=== PATIENT | male | born 1945 | race Caucasian/White ===

== ENCOUNTER 2020-09-08 09:52 | Outpatient (REF) | payer MEDICARE, SELFPAY ==
[2020-09-08 10:12] LABS: MANUAL DIFF FLAG NO
[2020-09-08 10:19] LABS: Basophils Percent Auto 0.7 % (0-2); Eosinophils Absolute Auto 0.2 X10*3/uL (0.0-0.4); Eosinophils Percent Auto 3.9 % (0-4); Hematocrit 37.4 % (42-52); Hemoglobin 12.4 g/dl (14.0-18.0); Imm Gran Abs Auto 0.02 X10*3/uL (0.00-0.03); Imm Gran Pct Auto 0.4 % (0.0-0.4); Lymphocytes Absolute Auto 1.3 X10*3/uL (1.2-4.9); Lymphocytes Percent Auto 23.9 % (20-40); Mean Corpuscular HGB Conc 33.2 g/dl (31.0-36.0); Mean Corpuscular Hemoglobin 30.1 pg (27.0-33.0); Mean Corpuscular Volume 90.8 fL (80-98); Mean Platelet Volume 9.3 fL (9.4-12.4); Monocytes Absolute Auto 0.7 X10*3/uL (0.1-1.2); Monocytes Percent Auto 13.5 % (2-11); Neutrophils Absolute Auto 3.1 X10*3/uL (2.0-8.3); Neutrophils Percent Auto 57.6 % (45-73); Platelet Count 281 X10*3/uL (160-400); Red Blood Count 4.12 X10*6/uL (4.60-5.80); Red Cell Distribution Width 12.8 % (11.0-16.0); White Blood Count 5.4 X10*3/uL (4.8-10.8)
[2020-09-08 10:48] LABS: Alanine Aminotransferase 33 U/L (0-40); Albumin Level 4.3 g/dL (3.5-5.0); Alkaline Phosphatase 76 U/L (39-117); Anion Gap 13 (12-20); Aspartate Amino Transferase 31 U/L (5-37); Bilirubin Total 0.4 mg/dL (0.0-1.0); Blood Urea Nitrogen 19 mg/dL (9-16); Calcium 9.2 mg/dL (8.4-10.2); Carbon Dioxide 27 mmol/L (22-29); Chloride 105 mmol/L (96-108); Cholesterol 112 mg/dL; Estimated Glomerular Filt Rate > 60; Glucose Fasting 115 mg/dL (60-99); HDL Cholesterol 45 mg/dL; LDL Cholesterol Calculated 29 mg/dl; Potassium 4.5 mmol/l (3.3-5.1); Sodium 140 mmol/L (135-145); Total Protein 6.6 g/dL (6.5-8.0); Triglycerides 194 mg/dL
== END 2020-09-08 09:53 | disposition home or self-care (01) ==
LOC: HO.LAB 09:52
PROVIDERS: PCP Internal Medicine; Visit Provider Internal Medicine
DX: Z00.00 Encounter for general adult medical examination without abnormal findings (principal); E11.9 Type 2 diabetes mellitus without complications
CPT/HCPCS: 36415; 80053; 80061; 85025

== ENCOUNTER 2022-02-27 08:43 | Outpatient (REF) | payer MEDICARE, SELFPAY ==
[2022-02-27 09:32] LABS: MANUAL DIFF FLAG NO
[2022-02-27 10:07] LABS: Basophils Percent Auto 0.5 % (0-2); Eosinophils Absolute Auto 0.2 X10*3/uL (0.0-0.4); Eosinophils Percent Auto 2.2 % (0-4); Hematocrit 39.8 % (42.0-52.0); Hemoglobin 13.2 g/dl (14.0-18.0); Imm Gran Abs Auto 0.05 X10*3/uL (0.00-0.03); Imm Gran Pct Auto 0.6 % (0.0-0.4); Lymphocytes Absolute Auto 1.5 X10*3/uL (1.2-4.9); Lymphocytes Percent Auto 19.5 % (20-40); Mean Corpuscular HGB Conc 33.2 g/dl (31.0-36.0); Mean Corpuscular Hemoglobin 29.5 pg (27.0-33.0); Mean Corpuscular Volume 88.8 fL (80.0-98.0); Mean Platelet Volume 9.4 fL (9.4-12.4); Monocytes Absolute Auto 0.9 X10*3/uL (0.1-1.2); Monocytes Percent Auto 12.1 % (2-11); Neutrophils Percent Auto 65.1 % (45-73); Platelet Count 307 X10*3/uL (160-400); Red Blood Count 4.48 X10*6/uL (4.60-5.80); Red Cell Distribution Width 13.3 % (11.0-16.0); White Blood Count 7.7 X10*3/uL (4.8-10.8)
[2022-02-27 10:38] LABS: Alanine Aminotransferase 31 U/L (0-40); Albumin Level 4.4 g/dL (3.5-5.0); Alkaline Phosphatase 93 U/L (39-117); Anion Gap 15 (12-20); Aspartate Amino Transferase 27 U/L (5-37); Bilirubin Total 0.8 mg/dL (0.0-1.0); Blood Urea Nitrogen 19 mg/dL (9-16); Calcium 9.9 mg/dL (8.4-10.2); Carbon Dioxide 25 mmol/L (22-29); Chloride 104 mmol/L (96-108); Cholesterol 125 mg/dL; Estimated Glomerular Filt Rate > 60; Glucose Fasting 127 mg/dL (60-99); HDL Cholesterol 47 mg/dL; LDL Cholesterol Calculated 46 mg/dl; Potassium 4.8 mmol/L (3.3-5.1); Sodium 139 mmol/L (135-145); Total Protein 7.1 g/dL (6.5-8.0); Triglycerides 163 mg/dL
[2022-02-27 10:51] LABS: Thyroid Stimulating Hormone 1.16 uIU/mL (0.32-4.0)
== END 2022-02-27 08:44 | disposition home or self-care (01) ==
LOC: HO.LAB 08:43
PROVIDERS: PCP Internal Medicine; Visit Provider Internal Medicine
DX: Z00.00 Encounter for general adult medical examination without abnormal findings (principal)
CPT/HCPCS: 36415; 80053; 80061; 84443; 85025

== ENCOUNTER 2023-08-12 13:16 | Outpatient (AMB) | payer MEDICARE, SELFPAY ==
--- NOTE | 2023-08-12 13:22 | MHC.PC.OV ---
Vital Signs 08/12/23 13:23 Height 5 ft 8 in Weight 203 lb BMI 30.9 BP 144/66 H Blood Pressure Location Lt brachial Position Sitting Pulse 53 Pulse Source Pulse Oximeter Pulse Oximetry (%) 98 Oxygen Delivery Method Room Air Intake Visit Reasons: follow [facility] 08/04/23 Weather Anchor Required: No Zipper Slide Attacher: Present Accompanied by: Spouse Allergies No Known Allergies Allergy (Verified 08/12/23 13:23) Medication List - Last Reconciled 08/13/23 by Broderick Beckford MD atorvastatin 40 mg PO DAILY cyclosporine 0.05% (Restasis) 1 drp ophthalmic (eye) Q12H evolocumab mg subcut Q2W isosorbide mononitrate ER 30 mg PO QAM loperamide (Imodium A-D) 2 mg PO DAILY PRN lorazepam 1 mg PO DAILY PRN meclizine mg PO mesalamine 1,000 mg [place] BEDTIME PRN metoprolol succinate ER 25 mg PO DAILY oxycodone 5 mg PO Q6H PRN zolpidem 10 mg PO BEDTIME PRN Tobacco use date assessed: 03/26/23 Fall risk assessment: No Falls in past year Last assessed Fall Risk: 08/12/23 Dental Screening Dental Screen Date: 08/12/23 Did you have a dental visit in the last 12 months?: Yes Did you have a dental problem in the last 6 months where you did not have access to dental care?: No Was dental information given to patient?: Patient has dentist HPI [facility] 08/04/23 HPI Details shingle on right side of chest; already seen and rx'd; improving PFSH Medical History Coronary artery disease Back pain Surgical History History of open heart surgery History of vasectomy Hx of angioplasty History of inguinal hernia repair History of appendectomy Family History Father Skin cancer Heart disease Mother No problems noted. Sister Breast cancer Skin cancer Social History Housing: House Alcohol intake: never Patient Tobacco Use Status: Former Tobacco user Tobacco use type: Cigarette e-Cigarette/Vaping Use: Never Used Second Hand Smoke Exposure: No service: No Current occupational status: retired Cognitive needs: No Hearing needs: No Vision needs: No Questionnaire PHQ-9 Over the last 2 weeks, how often have you been bothered by any of the following problems? 1. Little interest or pleasure in doing things: not at all 2. Feeling down, depressed, or hopeless: not at all 3. Trouble falling or staying asleep, or sleeping too much: not at all 4. Feeling tired or having little energy: not at all 5. Poor appetite or overeating: not at all 6. Feeling bad about yourself - or that you are a failure or have let yourself or your family down: not at all 7. Trouble concentrating on things, such as reading the newspaper or watching television: not at all 8. Moving or speaking so slowly that other people could have noticed. Or the opposite - being so fidgety or restless that you have been moving around a lot more than usual: not at all 9. Thoughts that you would be better off or of hurting yourself in some way: not at all Total score: 0 Depression Screening Interpretation: Negative Depression Screening Done: Yes 23278 - PHQ-9 Billing: Yes Source: Developed by Drs. James Restrepo, Kevin Novoa and colleagues, with an educational jessica from [employer]. Thrive Questionnaire Date Thrive assessed: 03/26/23 AUDIT C Alcohol Use Questionnaire (AUDIT-C) 1. How often do you have a drink containing alcohol?: Never Total Score: 0 ANTWON-7 AMB Questionnaire ANTWON-7 Date ANTWON - 7 assessed: 03/26/23 Source: Developed by Drs. James Restrepo, Kevin Novoa and colleagues, with an educational jessica from [employer]. Review of Systems Const Denies chills, Denies headache(s) and Denies weight loss ENT Denies headache(s) Card Denies syncope, Denies irregular heart rhythm and Denies dyspnea Resp Denies chest congestion, Denies cough and Denies dyspnea GI Denies abdominal pain, Denies change in stool character, Denies nausea and Denies vomiting Musc Denies deformity and Denies joint swelling Neuro Denies syncope and Denies headache(s) Physical exam (Primary Care) Vital Signs: Last Vital Signs Pulse 53 08/12/23 13:23 BP 144/66 H 08/12/23 13:23 Pulse Ox 98 08/12/23 13:23 Oxygen Delivery Method Room Air 08/12/23 13:23 BMI result Body Mass Index 30.9 Tobacco/Smoking Status: Tobacco use Status Tobacco use date assessed 03/26/23 08/12/23 13:24 Patient Tobacco Use Status Former Tobacco user 08/12/23 13:24 Tobacco use type Cigarette 08/12/23 13:24 e-Cigarette/Vaping Use Never Used 08/12/23 13:24 PHQ-9: PHQ-9 Score PHQ-9: Total score 0 08/12/23 13:24 Depression Screening Interpretation: Negative Thrive Assessment: Date of Thrive Assessment Date Thrive assessed 03/26/23 08/12/23 13:24 Const General: cooperative, comfortable, no acute distress and alert Neck Neck: Yes no lymphadenopathy Thyroid: Thyroid normal Resp Effort & Inspection: normal respiratory effort Auscultation: clear to auscultation bilaterally Percussion: percussion normal Cardio Jugular venous distension: no JVD Palpation: normal PMI Rate: regular rate Rhythm: regular rhythm Heart sounds: S1 normal heart sound present and S2 normal heart sound present GI Inspection: Yes normal to inspection Palpation (GI): No hepatosplenomegaly present Skin Other: Zoster on right trunk; no secondary infection Extrem General: Yes no clubbing, cyanosis or edema Assessment and Plan Assessment & Plan (1) Herpes zoster: Code(s): B02.9 - Zoster without complications Plan: add pain meds Medications: New oxycodone Partial Fill upon patient request. 5 mg PO Q6H PRN 20 tabs 0RF pain Coding Level of Care Code Est Pt Level 3 (46124) Diagnoses Herpes zoster B02.9
[2023-08-12 13:23] VITALS: BP 144/66; PULSE 53; O2SAT 98; BMI 30.9
== END 2023-08-12 14:19 | disposition home or self-care (01) ==
PROVIDERS: PCP Internal Medicine; Visit Provider Internal Medicine
DX: B02.9 Zoster without complications (principal)
CPT/HCPCS: 99213

== ENCOUNTER 2023-10-02 13:45 | Outpatient (AMB) | payer MEDICARE, SELFPAY ==
[2023-10-02 13:49] VITALS: BP 138/72; PULSE 26; O2SAT 98; BMI 32.1
--- NOTE | 2023-10-02 13:49 | MHC.PC.OV ---
Vital Signs 10/02/23 13:49 Height 5 ft 8 in Weight 211 lb BMI 32.1 BP 138/72 Blood Pressure Location Lt brachial Position Sitting Pulse 26 L Pulse Source Pulse Oximeter Pulse Oximetry (%) 98 Oxygen Delivery Method Room Air Intake Visit Reasons: 6mth f/u Chemical Supervisor Required: No Cascade Operator: Not Required per policy Accompanied by: Self / Same As Patient Allergies No Known Allergies Allergy (Verified 10/02/23 13:50) Medication List - Last Reconciled 10/03/23 by Broderick Beckford MD atorvastatin 40 mg PO DAILY cyclosporine 0.05% (Restasis) 1 drp ophthalmic (eye) Q12H evolocumab mg subcut Q2W gabapentin 300 mg PO TID gabapentin 100 mg PO TID hydroxyzine pamoate 25 mg PO QID PRN isosorbide mononitrate ER 30 mg PO QAM loperamide (Imodium A-D) 2 mg PO DAILY PRN lorazepam 1 mg PO DAILY PRN meclizine mg PO mesalamine 1,000 mg [place] BEDTIME PRN metoprolol succinate ER 25 mg PO DAILY zolpidem 10 mg PO BEDTIME PRN Tobacco use date assessed: 03/26/23 Fall risk assessment: No Falls in past year Last assessed Fall Risk: 10/02/23 Dental Screening Dental Screen Date: 10/02/23 Did you have a dental visit in the last 12 months?: Yes Did you have a dental problem in the last 6 months where you did not have access to dental care?: No Was dental information given to patient?: Patient has dentist HPI 6mth f/u HPI Details continues with shingles discomfort; pain improving and pruritis PFSH Medical History Coronary artery disease Back pain Surgical History History of open heart surgery History of vasectomy Hx of angioplasty History of inguinal hernia repair History of appendectomy Family History Father Skin cancer Heart disease Mother No problems noted. Sister Breast cancer Skin cancer Social History Housing: House Alcohol intake: never Patient Tobacco Use Status: Former Tobacco user Tobacco use type: Cigarette e-Cigarette/Vaping Use: Never Used Second Hand Smoke Exposure: No service: No Current occupational status: retired Cognitive needs: No Hearing needs: No Vision needs: Yes Questionnaire Thrive Questionnaire Date Thrive assessed: 03/26/23 ANTWON-7 AMB Questionnaire ANTWON-7 Date ANTWON - 7 assessed: 03/26/23 Source: Developed by Drs. James Restrepo, Dahiana Lynn, Kevin Baum and colleagues, with an educational jessica from [employer]. Review of Systems Const Denies chills, Denies headache(s) and Denies weight loss ENT Denies headache(s) Card Denies chest pain, Denies syncope, Denies irregular heart rhythm and Denies dyspnea Resp Denies chest congestion, Denies cough and Denies dyspnea GI Denies abdominal pain, Denies change in stool character, Denies nausea and Denies vomiting Musc Denies deformity and Denies joint swelling Neuro Denies syncope and Denies headache(s) Physical exam (Primary Care) Vital Signs: Last Vital Signs Pulse 26 L 10/02/23 13:49 BP 138/72 10/02/23 13:49 Pulse Ox 98 10/02/23 13:49 Oxygen Delivery Method Room Air 10/02/23 13:49 BMI result Body Mass Index 32.1 Tobacco/Smoking Status: Tobacco use Status Tobacco use date assessed 03/26/23 10/02/23 13:50 Patient Tobacco Use Status Former Tobacco user 10/02/23 13:50 Tobacco use type Cigarette 10/02/23 13:50 e-Cigarette/Vaping Use Never Used 10/02/23 13:50 Thrive Assessment: Date of Thrive Assessment Date Thrive assessed 03/26/23 10/02/23 13:50 Const General: cooperative, comfortable, no acute distress and alert Neck Neck: Yes no lymphadenopathy Thyroid: Thyroid normal Resp Effort & Inspection: normal respiratory effort Auscultation: clear to auscultation bilaterally Percussion: percussion normal Cardio Jugular venous distension: no JVD Palpation: normal PMI Rate: regular rate Rhythm: regular rhythm Heart sounds: S1 normal heart sound present and S2 normal heart sound present GI Inspection: Yes normal to inspection Palpation (GI): No hepatosplenomegaly present Skin General skin exam: no rashes or lesions noted Extrem General: Yes no clubbing, cyanosis or edema Assessment and Plan Assessment & Plan (1) Herpes zoster: Code(s): B02.9 - Zoster without complications Plan: increase gabapentin Medications: New gabapentin 300 mg PO TID 90 caps 0RF hydroxyzine pamoate 25 mg PO QID PRN 90 caps 5RF itching Coding Level of Care Code Est Pt Level 3 (38661) Diagnoses Herpes zoster B02.9
== END 2023-10-02 14:19 | disposition home or self-care (01) ==
PROVIDERS: PCP Internal Medicine; Visit Provider Internal Medicine
DX: B02.9 Zoster without complications (principal)
CPT/HCPCS: 99213

== ENCOUNTER 2024-03-27 13:26 | Outpatient (AMB) | payer MEDICARE, SELFPAY ==
[2024-03-27 13:42] VITALS: BP 134/70; PULSE 36; O2SAT 98; BMI 32.4
--- NOTE | 2024-03-27 13:42 | A.OFFPC_ITS ---
Vital Signs 03/27/24 13:42 Height 5 ft 8 in Weight 213 lb BMI 32.4 BP 134/70 Blood Pressure Location Lt brachial Position Sitting Pulse 36 L Pulse Source Pulse Oximeter Pulse Oximetry (%) 98 Oxygen Delivery Method Room Air Intake Visit Reasons: Annual Exam Spray Drier Operator Required: No Sample Prep Technician: Not Required per policy Accompanied by: Self / Same As Patient Allergies No Known Allergies Allergy (Verified 10/02/23 13:50) Medication List - Last Reconciled 03/30/24 by Broderick Beckford MD atorvastatin 40 mg PO DAILY cyclosporine 0.05% (Restasis) 1 drp ophthalmic (eye) Q12H evolocumab mg subcut Q2W furosemide (Lasix) 20 mg PO DAILY gabapentin 100 mg PO TID gabapentin 300 mg PO TID hydroxyzine pamoate 25 mg PO QID PRN isosorbide mononitrate ER 30 mg PO QAM loperamide (Imodium A-D) 2 mg PO DAILY PRN lorazepam 1 mg PO DAILY PRN meclizine mg PO mesalamine 1,000 mg [place] BEDTIME PRN metoprolol succinate ER 25 mg PO DAILY zolpidem 10 mg PO BEDTIME PRN Tobacco use date assessed: 03/27/24 Fall risk assessment: No Falls in past year Last assessed Fall Risk: 03/27/24 Dental Screening Dental Screen Date: 10/02/23 HPI Annual Exam HPI Details CAD hyperlipidemia on rx; sees cardioilogy and doing well [facility] Medical History Coronary artery disease Back pain Surgical History History of open heart surgery History of vasectomy Hx of angioplasty History of inguinal hernia repair History of appendectomy Family History Father Skin cancer Heart disease Mother No problems noted. Sister Breast cancer Skin cancer Social History Housing: House Alcohol intake: never Patient Tobacco Use Status: Former Tobacco user Tobacco use type: Cigarette e-Cigarette/Vaping Use: Never Used Second Hand Smoke Exposure: No service: No Current occupational status: retired Cognitive needs: No Hearing needs: No Vision needs: Yes Questionnaire PHQ-9 Over the last 2 weeks, how often have you been bothered by any of the following problems? 1. Little interest or pleasure in doing things: not at all 2. Feeling down, depressed, or hopeless: not at all 3. Trouble falling or staying asleep, or sleeping too much: not at all 4. Feeling tired or having little energy: not at all 5. Poor appetite or overeating: not at all 6. Feeling bad about yourself - or that you are a failure or have let yourself or your family down: not at all 7. Trouble concentrating on things, such as reading the newspaper or watching television: not at all 8. Moving or speaking so slowly that other people could have noticed. Or the opposite - being so fidgety or restless that you have been moving around a lot more than usual: not at all 9. Thoughts that you would be better off or of hurting yourself in some way: not at all Total score: 0 Depression Screening Interpretation: Negative Depression Screening Done: Yes 68692 - PHQ-9 Billing: Yes Source: Developed by Drs. James Restrepo, Dahiana Lynn, Kevin Baum and colleagues, with an educational jessica from [employer]. Thrive Questionnaire Date Thrive assessed: 03/27/24 I am a: Patient What is your living situation today?: I have a steady place to live Within the past 12 months, did the food you bought not last and you didn't have the money to get more?: Never true Within the past 12 months, did you worry whether your food would run out before you got money to buy more?: Never true Do you have trouble paying for medicines?: No Do you have trouble getting transportation to medical appointments?: No Do you have trouble paying your heating and electricity bill?: No Do you have trouble taking care of your child, family member or friend?: No Do you have trouble with day-to-day activities such as bathing, preparing meals, shopping, managing finances, etc.?: No Are you currently unemployed and looking for a job?: No Are you interested in more education?: No Please select the resources that you would like help with: None THRIVE Score: 0 AUDIT C Alcohol Use Questionnaire (AUDIT-C) 1. How often do you have a drink containing alcohol?: Never Total Score: 0 ANTWON-7 AMB Questionnaire ANTWON-7 Date ANTWON - 7 assessed: 03/27/24 Feeling nervous, anxious, or on edge: 0 = Not at all Not being able to stop or control worryin = Not at all Worrying too much about different things: 0 = Not at all Trouble relaxin = Not at all Being so restless that it is hard to sit still: 0 = Not at all Becoming easily annoyed or irritable: 0 = Not at all Feeling afraid as if something awful might happen: 0 = Not at all Total ANTWON-7 score (0-4 normal; 5-9 mild; 10-14 moderate; 15-21 severe): 0 Source: Developed by Drs. James Restrepo, Dahiana Lynn, Kevin Baum and colleagues, with an educational jessica from [employer]. ANTWON-7 Assessment Billing ANTWON-7 Assessment Tool: ANTWON-7 Assessment 68424 Physical exam (Primary Care) Vital Signs: Last Vital Signs Pulse 36 L 03/27/24 13:42 BP 134/70 03/27/24 13:42 Pulse Ox 98 03/27/24 13:42 Oxygen Delivery Method Room Air 03/27/24 13:42 BMI result Body Mass Index 32.4 Tobacco/Smoking Status: Tobacco use Status Tobacco use date assessed 03/27/24 03/27/24 13:49 Patient Tobacco Use Status Former Tobacco user 03/27/24 13:49 Tobacco use type Cigarette 03/27/24 13:49 e-Cigarette/Vaping Use Never Used 03/27/24 13:49 PHQ-9: PHQ-9 Score PHQ-9: Total score 0 03/30/24 10:12 Depression Screening Interpretation: Negative Thrive Assessment: Date of Thrive Assessment Date Thrive assessed 03/27/24 03/27/24 13:49 Assessment and Plan Assessment & Plan (1) Physical exam: Code(s): Z00.00 - Encounter for general adult medical examination without abnormal findings Plan: stable (2) Coronary artery disease: Code(s): I25.10 - Atherosclerotic heart disease of [place] coronary artery without angina pectoris Plan: per cardiology (3) Hyperlipidemia: Code(s): E78.5 - Hyperlipidemia, unspecified Plan: stable; do labs Orders: Orders Lipid Panel 03/27/24 Z13.220 - Encounter for screening for lipoid disorders Complete Blood Count Auto Diff 03/27/24 Z13.0 - Encounter for screening for diseases of the blood and blood-forming organs and certain disorders involving the immune mechanism Comprehensive [place]. Panel Fast 03/27/24 Z13.9 - Encounter for screening, unspecified Thyroid Stimulating Hormone 03/27/24 Z13.29 - Encounter for screening for other suspected endocrine disorder Medications: New furosemide (Lasix) 20 mg PO DAILY 30 tabs 3RF Refilled zolpidem 10 mg PO BEDTIME PRN 90 tabs 5RF insomnia hydroxyzine pamoate 25 mg PO QID PRN 90 caps 5RF itching Coding Level of Care Code Est Pt Prev Care >65y(52538) Diagnoses Physical exam Z00.00 Coronary artery disease I25.10 Hyperlipidemia E78.5 Additional Codes ANTWON-7 Assessment Billing - ANTWON-7 Assessment Tool: ANTWON-7 Assessment 99141 ([id number])
== END 2024-03-27 14:19 | disposition home or self-care (01) ==
PROVIDERS: PCP Internal Medicine; Visit Provider Internal Medicine
DX: Z00.00 Encounter for general adult medical examination without abnormal findings (principal); I25.10 Atherosclerotic heart disease of native coronary artery without angina pectoris; E78.5 Hyperlipidemia, unspecified
CPT/HCPCS: 99397

== ENCOUNTER 2024-05-13 10:05 | Outpatient (REF) | payer MEDICARE, SELFPAY ==
[2024-05-13 10:24] LABS: MANUAL DIFF FLAG NO
[2024-05-13 10:46] LABS: Basophils Absolute Auto 0.1 X10*3/uL (0.0-0.2); Basophils Percent Auto 1.1 % (0-2); Eosinophils Absolute Auto 0.2 X10*3/uL (0.0-0.4); Eosinophils Percent Auto 2.8 % (0-4); Hematocrit 37.4 % (42.0-52.0); Hemoglobin 12.7 g/dl (14.0-18.0); Imm Gran Abs Auto 0.03 X10*3/uL (0.00-0.03); Imm Gran Pct Auto 0.5 % (0.0-0.4); Lymphocytes Absolute Auto 1.4 X10*3/uL (1.2-4.9); Lymphocytes Percent Auto 23.9 % (20-40); Mean Corpuscular Hemoglobin 30.6 pg (27.0-33.0); Mean Corpuscular Volume 90.1 fL (80.0-98.0); Mean Platelet Volume 9.4 fL (9.4-12.4); Monocytes Absolute Auto 0.8 X10*3/uL (0.1-1.2); Monocytes Percent Auto 13.9 % (2-11); Neutrophils Absolute Auto 3.3 x10*3/uL (2.0-8.3); Neutrophils Percent Auto 57.8 % (45-73); Platelet Count 283 X10*3/uL (160-400); Red Blood Count 4.15 X10*6/uL (4.60-5.80); Red Cell Distribution Width 13.6 % (11.0-16.0); White Blood Count 5.7 X10*3/uL (4.8-10.8)
[2024-05-13 11:30] LABS: Alanine Aminotransferase 38 U/L (0-40); Albumin Level 4.2 g/dL (3.5-5.0); Alkaline Phosphatase 74 U/L (39-117); Anion Gap 11 (12-20); Aspartate Amino Transferase 30 U/L (5-37); Bilirubin Total 0.6 mg/dL (0.0-1.0); Blood Urea Nitrogen 25 mg/dL (9-16); Calcium 8.6 mg/dL (8.4-10.2); Carbon Dioxide 28 mmol/L (22-29); Chloride 104 mmol/L (96-108); Cholesterol 95 mg/dL (<200); Estimated Glomerular Filt Rate > 60; Glucose Fasting 134 mg/dL (60-99); HDL Cholesterol 43 mg/dL (>40); LDL Cholesterol Calculated 28 mg/dL (<100); Potassium 4.2 mmol/L (3.3-5.1); Sodium 139 mmol/L (135-145); Total Protein 6.8 g/dL (6.5-8.0); Triglycerides 122 mg/dL (<150)
[2024-05-13 11:47] LABS: Thyroid Stimulating Hormone 1.44 uIU/mL (0.32-4.0)
== END 2024-05-13 10:06 | disposition home or self-care (01) ==
LOC: HO.LAB 10:05
PROVIDERS: PCP Internal Medicine; Visit Provider Internal Medicine
DX: Z13.220 Encounter for screening for lipoid disorders (principal); Z13.29 Encounter for screening for other suspected endocrine disorder; Z13.0 Encounter for screening for diseases of the blood and blood-forming organs and certain disorders involving the immune mechanism; Z13.6 Encounter for screening for cardiovascular disorders
CPT/HCPCS: 36415; 80053; 80061; 84443; 85025

== ENCOUNTER 2024-09-28 13:36 | Outpatient (AMB) | payer MEDICARE, SELFPAY ==
--- NOTE | 2024-09-28 13:49 | A.OFFPC_ITS ---
Vital Signs 09/28/24 13:51 Height 5 ft 8 in Weight 220 lb BMI 33.4 BP 138/84 Blood Pressure Location Lt brachial Position Sitting Pulse 79 Pulse Source Pulse Oximeter Pulse Oximetry (%) 96 Oxygen Delivery Method Room Air Intake Visit Reasons: 6mth f/u Allergies No Known Allergies Allergy (Verified 09/28/24 13:57) Medication List - Last Reconciled 09/29/24 by Broderick Beckford MD alirocumab (Praluent Pen) mg subcut atorvastatin 40 mg PO DAILY cyclosporine 0.05% (Restasis) 1 drp ophthalmic (eye) Q12H evolocumab mg subcut Q2W gabapentin 300 mg PO TID loperamide (Imodium A-D) 2 mg PO DAILY PRN lorazepam 1 mg PO DAILY PRN meclizine mg PO mesalamine 1,000 mg [place] BEDTIME PRN metoprolol succinate ER 25 mg PO DAILY zolpidem 10 mg PO BEDTIME PRN Tobacco use date assessed: 09/28/24 Fall risk assessment: No Falls in past year Last assessed Fall Risk: 09/28/24 Dental Screening Dental Screen Date: 09/28/24 Did you have a dental visit in the last 12 months?: Yes Did you have a dental problem in the last 6 months where you did not have access to dental care?: No Was dental information given to patient?: Patient has dentist HPI 6mth f/u HPI Details hyperlipidemia on rx; doing well and compliant on regimen PFSH Medical History Coronary artery disease Back pain Surgical History History of open heart surgery History of vasectomy Hx of angioplasty History of inguinal hernia repair History of appendectomy Family History Father Skin cancer Heart disease Mother No problems noted. Sister Breast cancer Skin cancer Social History Housing: House Alcohol intake: never Patient Tobacco Use Status: Former Tobacco user Tobacco use type: Cigarette e-Cigarette/Vaping Use: Never Used Second Hand Smoke Exposure: No service: No Current occupational status: retired Cognitive needs: No Hearing needs: No Vision needs: Yes Questionnaire PHQ-9 Over the last 2 weeks, how often have you been bothered by any of the following problems? 1. Little interest or pleasure in doing things: nearly every day 2. Feeling down, depressed, or hopeless: nearly every day 3. Trouble falling or staying asleep, or sleeping too much: several days 4. Feeling tired or having little energy: nearly every day 5. Poor appetite or overeating: several days 6. Feeling bad about yourself - or that you are a failure or have let yourself or your family down: not at all 7. Trouble concentrating on things, such as reading the newspaper or watching television: not at all 8. Moving or speaking so slowly that other people could have noticed. Or the opposite - being so fidgety or restless that you have been moving around a lot more than usual: not at all 9. Thoughts that you would be better off or of hurting yourself in some way: not at all Total score: 11 Depression Screening Interpretation: Positive Depression Screening Done: Yes 74316 - PHQ-9 Billing: Yes Source: Developed by Drs. James Restrepo, Dahiana Lynn, Kevin Baum and colleagues, with an educational jessica from [employer]. Thrive Questionnaire Date Thrive assessed: 09/28/24 I am a: Patient What is your living situation today?: I have a steady place to live Within the past 12 months, did the food you bought not last and you didn't have the money to get more?: Never true Within the past 12 months, did you worry whether your food would run out before you got money to buy more?: Never true Do you have trouble paying for medicines?: No Do you have trouble getting transportation to medical appointments?: No Do you have trouble paying your heating and electricity bill?: No Do you have trouble taking care of your child, family member or friend?: No Do you have trouble with day-to-day activities such as bathing, preparing meals, shopping, managing finances, etc.?: No Are you currently unemployed and looking for a job?: No Are you interested in more education?: No Please select the resources that you would like help with: None THRIVE Score: 0 AUDIT C Alcohol Use Questionnaire (AUDIT-C) 1. How often do you have a drink containing alcohol?: Never 3. How often do you have six or more drinks on one occasion?: Never Total Score: 0 ANTWON-7 AMB Questionnaire ANTWON-7 Date ANTWON - 7 assessed: 09/28/24 Feeling nervous, anxious, or on edge: 0 = Not at all Not being able to stop or control worryin = Nearly every day Worrying too much about different things: 3 = Nearly every day Trouble relaxin = Several days Being so restless that it is hard to sit still: 2 = More than half the days Becoming easily annoyed or irritable: 3 = Nearly every day Feeling afraid as if something awful might happen: 3 = Nearly every day Total ANTWON-7 score (0-4 normal; 5-9 mild; 10-14 moderate; 15-21 severe): 15 Source: Developed by Drs. James Restrepo, Dahiana Lynn, Kevin Baum and colleagues, with an educational jessica from [employer]. ANTWON-7 Assessment Billing ANTWON-7 Assessment Tool: ANTWON-7 Assessment 69375 Review of Systems Const Denies chills, Denies headache(s) and Denies weight loss ENT Denies headache(s) Card Denies chest pain, Denies syncope, Denies irregular heart rhythm and Denies dyspnea Resp Denies chest congestion, Denies cough and Denies dyspnea GI Denies abdominal pain, Denies change in stool character, Denies nausea and Denies vomiting Musc Denies deformity and Denies joint swelling Neuro Denies syncope and Denies headache(s) Physical exam (Primary Care) Vital Signs: Last Vital Signs Pulse 79 09/28/24 13:51 BP 138/84 09/28/24 13:51 Pulse Ox 96 09/28/24 13:51 Oxygen Delivery Method Room Air 09/28/24 13:51 BMI result Body Mass Index 33.4 Tobacco/Smoking Status: Tobacco use Status Tobacco use date assessed 09/28/24 09/28/24 14:05 Patient Tobacco Use Status Former Tobacco user 09/28/24 13:50 Tobacco use type Cigarette 09/28/24 13:50 e-Cigarette/Vaping Use Never Used 09/28/24 13:50 PHQ-9: PHQ-9 Score PHQ-9: Total score 11 09/28/24 14:05 Depression Screening Interpretation: Positive Thrive Assessment: Date of Thrive Assessment Date Thrive assessed 09/28/24 09/28/24 14:05 Const General: cooperative, comfortable, no acute distress and alert Neck Neck: Yes no lymphadenopathy Thyroid: Thyroid normal Resp Effort & Inspection: normal respiratory effort Auscultation: clear to auscultation bilaterally Percussion: percussion normal Cardio Jugular venous distension: no JVD Palpation: normal PMI Rate: regular rate Rhythm: regular rhythm Heart sounds: S1 normal heart sound present and S2 normal heart sound present GI Inspection: Yes normal to inspection Palpation (GI): No hepatosplenomegaly present Skin General skin exam: no rashes or lesions noted Extrem General: Yes no clubbing, cyanosis or edema Coding Level of Care Code Est Pt Level 3 (71741) Diagnoses Hyperlipidemia E78.5 Additional Codes ANTWON-7 Assessment Billing - ANTWON-7 Assessment Tool: ANTWON-7 Assessment 63246 ([id number]) PHQ-9 - 04749 - PHQ-9 Billing: Yes ([id number]) Assessment & Plan Assessment & Plan (1) Hyperlipidemia: Code(s): E78.5 - Hyperlipidemia, unspecified Category: Medical Plan: stable; same rx Medications: Refilled gabapentin 300 mg PO TID 90 caps 3RF
[2024-09-28 13:51] VITALS: BP 138/84; PULSE 79; O2SAT 96; BMI 33.4
== END 2024-09-28 14:45 | disposition home or self-care (01) ==
PROVIDERS: PCP Internal Medicine; Visit Provider Internal Medicine
DX: E78.5 Hyperlipidemia, unspecified (principal)

== ENCOUNTER → 2024-09-28 13:36 | Outpatient (BNVA) | payer MEDICARE, SELFPAY | PROVIDERS: PCP Internal Medicine; Visit Provider Internal Medicine | DX: E78.5 Hyperlipidemia, unspecified (principal) | CPT/HCPCS: 96127; 99212 ==